=== PATIENT | female | born 1940 | race Caucasian/White ===

== ENCOUNTER 2020-03-06 12:11 | Emergency (ER) | payer OTHER ==
[~2020-03-06] VITALS: Ht 162.6 cm; Wt 90.7 kg
[2020-03-06 12:58] LABS: URINE BLOOD 3+ (Negative); URINE CLARITY CLOUDY; URINE COLOR RED; URINE LEUKOCYTES-REFLEX TRACE (Negative); URINE PROTEIN (DIPSTICK) 3+ (Negative); URINE SPECIFIC GRAVITY 1.025 (1.005-1.035)
[2020-03-06 13:03] LABS: URINE NITRITE-REFLEX POSITIVE (Negative)
[2020-03-06 13:04] LABS: ICTOTEST (BILI CONFIRMATORY) Negative (Negative); URINE BILIRUBIN NEGATIVE (Negative)
[2020-03-06 13:07] LABS: SQUAMOUS 4-10 Moderate /LPF (0-3)
[2020-03-06 13:08] LABS: CASTS None Seen /LPF (None Seen); CRYSTALS None Seen /LPF (None Seen); URINE RBC >20 Many /HPF (0-2)
[2020-03-06 13:31] LABS: ABSOLUTE NEUTROPHILS 14.6 thou/uL (1.4-8.2); BASOPHILS 0.3 % (0.0-2.0); HEMATOCRIT 44.4 % (37.0-47.0); HEMOGLOBIN 14.5 gm/dL (12.0-15.0); MCHC 32.7 g/dL (28.0-37.0); MCV 91.8 fL (80.0-100.0); POLYS 86.7 % (36.0-66.0); RBC 4.84 mil/uL (4.20-5.00); RDW 13.1 % (10.5-14.5); WBC 16.9 thou/uL (4.0-11.0)
[2020-03-06 13:41] LABS: CALCIUM 9.5 mg/dL (8.5-10.1); CREATININE 1.2 mg/dL (0.6-1.0); POTASSIUM 4.1 mmol/L (3.5-5.1)
[2020-03-06 13:47] LABS: ALBUMIN 2.8 g/dL (3.4-5.0); TOTAL BILIRUBIN 0.7 mg/dL (0.2-1.0); TOTAL PROTEIN 8.1 g/dL (6.4-8.2)
[2020-03-06 13:56] LABS: LARGE PLATELETS SEVERAL; PLATELET COUNT 265 thou/uL (150-400)
[2020-03-06 19:18] VITALS: BP 216/109
== END 2020-03-06 19:44 | disposition short-term general hospital (02) ==
LOC: ER 12:11
PROVIDERS: Emergency Medicine
DX: N12 Tubulo-interstitial nephritis, not specified as acute or chronic (principal); N13.30 Unspecified hydronephrosis; R19.7 Diarrhea, unspecified; R11.2 Nausea with vomiting, unspecified; E11.9 Type 2 diabetes mellitus without complications; Z88.0 Allergy status to penicillin